=== PATIENT | female | born 1970 | race Caucasian/White ===

== ENCOUNTER 2017-02-13 01:48 | Emergency (ER) | payer MEDICAID ==
[~2017-02-13] VITALS: Ht 170.2 cm; Wt 80.7 kg
[~2017-02-13 01:48] MED LIST: ACYC-113 PO; ALPR1TAB2 PO; BUSP5TAB2 PO; CARI250T PO; DIAZ1KIT2; MORP30TA81 PO; MORP60TA34 PO; OMEP20TA62 PO; OXYC1TAB9 PO; SIMV40TA3 PO; ZOFRAN PO; baclofen; morphine; percocet; simvastatin
[2017-02-13] MEDS ORDERED: SODIUM CHLORIDE 0.9% 1,000 ML IV ONE (01:51)
[2017-02-13] MEDS ORDERED: MORPHINE SULFATE 4 MG/ML, 1ML IVPush PRN (02:00)
[2017-02-13] MEDS ORDERED: ONDANSETRON 2MG/ML, 2ML IVPush ONE (02:00)
[2017-02-13] MEDS ORDERED: SODIUM CHLORIDE FLUSH 10ML SYR IVF ONE (02:00)
[2017-02-13] MEDS ORDERED: MORPHINE SULFATE 4 MG/ML, 1ML ONE (02:29)
[2017-02-13] MEDS ORDERED: ONDANSETRON 2MG/ML, 2ML ONE (02:29)
[2017-02-13 03:20] LABS: BLOOD UREA NITROGEN 6 mg/dL (7-18)
[2017-02-13 03:24] LABS: ASPARTATE AMINO TRANSFERASE 17 U/L (15-37)
[2017-02-13 04:00] VITALS: BP 96/55
== END 2017-02-13 04:10 | disposition home or self-care (01) ==
LOC: ED 03:15
DX: R10.13 Epigastric pain (principal); M54.9 Dorsalgia, unspecified; G89.29 Other chronic pain; Z90.49 Acquired absence of other specified parts of digestive tract; Z98.84 Bariatric surgery status
CPT/HCPCS: 36415; 74020; 80053; 83690; 84703; 85025; 96361; 96374; 96375; 99285; J2405; J7030

== ENCOUNTER 2017-03-03 03:32 | Emergency (ER) | payer MEDICAID ==
[~2017-03-03] VITALS: Ht 170.2 cm; Wt 79.5 kg
[2017-03-03] MEDS ORDERED: CITA40TA12 PO (04:32)
[2017-03-03] MEDS ORDERED: HYDROmorphone 1 MG/ML, 1ML ONE ×2 (04:53→07:09)
[2017-03-03] MEDS ORDERED: ONDANSETRON 2MG/ML, 2ML ONE (04:53)
[2017-03-03] MEDS ORDERED: SODIUM CHLORIDE 0.9% 1,000ML IVBOLUS ONE (05:00)
[2017-03-03] MEDS ORDERED: ONDANSETRON 2MG/ML, 2ML IVPush ONE (05:00)
[2017-03-03] MEDS ORDERED: HYDROmorphone 1 MG/ML, 1ML IVPush PRN ×2 (05:00→08:00)
[2017-03-03] MEDS ORDERED: SODIUM CHLORIDE FLUSH 10ML SYR IVF ONE (05:00)
[2017-03-03 05:25] LABS: BLOOD UREA NITROGEN 7 mg/dL (7-18)
[2017-03-03 05:28] LABS: ASPARTATE AMINO TRANSFERASE 16 U/L (15-37)
[2017-03-03] MEDS ORDERED: METOCLOPRAMIDE 5 MG/ML, 2ML IVPush ONE (07:30)
[2017-03-03 08:39] VITALS: BP 108/66
== END 2017-03-03 08:44 | disposition home or self-care (01) ==
LOC: ED 05:14 → SUATTDRO 06:56 → ED 08:44
PROVIDERS: ATTEND Internal Medicine
DX: K29.00 Acute gastritis without bleeding (principal); N30.00 Acute cystitis without hematuria; M54.9 Dorsalgia, unspecified; G89.29 Other chronic pain; Z90.49 Acquired absence of other specified parts of digestive tract; Z88.2 Allergy status to sulfonamides; Z88.8 Allergy status to other drugs, medicaments and biological substances
CPT/HCPCS: 36415; 76700; 80053; 81001; 83605; 83690; 85025; 85610; 87086; 93005; 96361; 96374; 96375; 96376; 99285; J1170; J2405; J7030

== ENCOUNTER 2017-03-11 01:47 | Inpatient (IN) | payer MEDICAID ==
[~2017-03-11] VITALS: Ht 170.2 cm; Wt 94.6 kg
[~2017-03-11 01:47] MED LIST changes: +CITA40TA12 PO
[2017-03-11 02:56] LABS: ASPARTATE AMINO TRANSFERASE 14 U/L (15-37); BLOOD UREA NITROGEN 4 mg/dL (7-18)
[2017-03-11] MEDS ORDERED: SODIUM CHLORIDE 0.9% 1,000ML IVBOLUS ONE ×2 (03:00→05:00)
[2017-03-11] MEDS ORDERED: MORPHINE SULFATE 4 MG/ML, 1ML IVPush PRN (03:00)
[2017-03-11] MEDS ORDERED: ONDANSETRON 2MG/ML, 2ML IVPush ONE (03:00)
[2017-03-11] MEDS ORDERED: ONDANSETRON 2MG/ML, 2ML ONE (03:07)
[2017-03-11] MEDS ORDERED: HYDROmorphone 1 MG/ML, 1ML ONE ×2 (03:07→04:45)
[2017-03-11] MEDS ORDERED: HYDROmorphone 1 MG/ML, 1ML IV ONE (03:30)
[2017-03-11] MEDS ORDERED: SODIUM CHLORIDE 0.9% 1,000 ML IV ONE (04:36)
[2017-03-11] MEDS: HYDROmorphone 1 MG/ML, 1ML IVPush PRN ×2 (04:48→05:47)
[2017-03-11] MEDS ORDERED: HYDROmorphone 1 MG/ML, 1ML IVPush PRN (05:00)
[2017-03-11] MEDS ORDERED: ONDANSETRON 2MG/ML, 2ML IVPush PRN ×2 (05:00→05:30)
[2017-03-11] MEDS ORDERED: SODIUM CHLORIDE 0.9% 1,000 ML IV SCH (05:22)
[2017-03-11] MEDS ORDERED: METOCLOPRAMIDE 5 MG/ML, 2ML IVPush PRN (05:30)
[2017-03-11] MEDS ORDERED: PROMETHAZINE 25 MG/ML, 1ML IM PRN (05:30)
[2017-03-11 06:28] VITALS: BP 101/61
[2017-03-11] MEDS ORDERED: OMNIPAQUE 350 MG/ML, 100ML BOTTLE ONE (06:29)
[2017-03-11 07:33] VITALS: BP 82/49
[2017-03-11] MEDS: CITALOPRAM 20 MG TABLET PO SCH (08:23)
[2017-03-11] MEDS: ENOXAPARIN 40 MG/0.4 ML SQ SCH (08:23)
[2017-03-11 09:57] VITALS: BP 94/53
[2017-03-11] MEDS ORDERED: MAGNESIUM SULFATE PMX 2GM/50ML 50 ML IV ONE (10:30)
[2017-03-11 10:57] VITALS: BP 107/63
[2017-03-11 13:46] VITALS: BP 105/61
[2017-03-11] MEDS: OXYcodone/APAP 10/325MG TABLET PO PRN (17:03)
[2017-03-11 19:23] VITALS: BP 100/64
[2017-03-11] MEDS: morphine SULFATE 60 MG TABLET.ER PO SCH (21:41)
[2017-03-11] MEDS: ALPRazolam 1MG TABLET PO SCH (21:41)
[2017-03-11] MEDS: SIMVASTATIN 40 MG TABLET PO SCH (21:41)
[2017-03-12 01:32] VITALS: BP 107/68
[2017-03-12] MEDS: POTASSIUM CHLORIDE 40 MEQ in SODIUM CHLORIDE 0.9% 1,000 ML IV SCH ×2 (02:36→11:22)
[2017-03-12] MEDS: OXYcodone/APAP 10/325MG TABLET PO PRN ×2 (04:46→15:38)
[2017-03-12 05:38] LABS: ASPARTATE AMINO TRANSFERASE 331 U/L (15-37); BLOOD UREA NITROGEN 4 mg/dL (7-18)
[2017-03-12 07:26] VITALS: BP 95/61
[2017-03-12] MEDS: CITALOPRAM 20 MG TABLET PO SCH (08:43)
[2017-03-12] MEDS: ENOXAPARIN 40 MG/0.4 ML SQ SCH (08:44)
[2017-03-12] MEDS ORDERED: OMEPRAZOLE 20 MG CAPSULE.DR PO SCH (09:30)
[2017-03-12 12:22] VITALS: BP 98/61
[2017-03-12] MEDS ORDERED: POTASSIUM CHLORIDE 20 MEQ TAB.ER.PRT PO ONE (15:30)
[2017-03-12] MEDS: OMEPRAZOLE 20 MG CAPSULE.DR PO SCH (18:42)
[2017-03-12 19:17] VITALS: BP 110/69
[2017-03-12] MEDS: SIMVASTATIN 40 MG TABLET PO SCH (21:04)
[2017-03-12] MEDS: ALPRazolam 1MG TABLET PO SCH (21:04)
[2017-03-12] MEDS: morphine SULFATE 60 MG TABLET.ER PO SCH (21:05)
[2017-03-12] MEDS: DIPHENHYDRAMINE 50 MG/ML, 1ML IVPush ONE ×2 (23:30→23:46)
[2017-03-13] MEDS ORDERED: DIPHENHYDRAMINE 25 MG CAPSULE PO ONE
[2017-03-13 00:52] VITALS: BP 101/66
[2017-03-13] MEDS: OXYcodone/APAP 10/325MG TABLET PO PRN ×3 (02:17→23:29)
[2017-03-13 05:42] LABS: ASPARTATE AMINO TRANSFERASE 182 U/L (15-37); BLOOD UREA NITROGEN 3 mg/dL (7-18); TOTAL IRON BINDING CAPACITY 341 mcg/dL (250-450)
[2017-03-13 07:33] VITALS: BP 89/54
[2017-03-13] MEDS: OMEPRAZOLE 20 MG CAPSULE.DR PO SCH ×2 (07:56→17:09)
[2017-03-13] MEDS: CITALOPRAM 20 MG TABLET PO SCH (07:56)
[2017-03-13] MEDS: ENOXAPARIN 40 MG/0.4 ML SQ SCH (07:56)
[2017-03-13 14:09] VITALS: BP 107/71
[2017-03-13 19:07] VITALS: BP 122/72
[2017-03-13] MEDS: ALPRazolam 1MG TABLET PO SCH (21:03)
[2017-03-13] MEDS: SIMVASTATIN 40 MG TABLET PO SCH (21:03)
[2017-03-13] MEDS: morphine SULFATE 60 MG TABLET.ER PO SCH (21:04)
[2017-03-13] MEDS ORDERED: DIPHENHYDRAMINE 50 MG CAPSULE PO ONE (21:30)
[2017-03-14 02:00] VITALS: BP 111/55
[2017-03-14] MEDS: HYDROmorphone 2 MG/ML, 1ML IVPush PRN ×2 (05:31→06:08)
[2017-03-14 05:50] LABS: ASPARTATE AMINO TRANSFERASE 55 U/L (15-37); BLOOD UREA NITROGEN 5 mg/dL (7-18)
[2017-03-14] MEDS: OXYcodone/APAP 10/325MG TABLET PO PRN (06:04)
[2017-03-14 07:43] VITALS: BP 108/71
[2017-03-14] MEDS: CITALOPRAM 20 MG TABLET PO SCH (08:18)
[2017-03-14] MEDS: OMEPRAZOLE 20 MG CAPSULE.DR PO SCH (08:18)
[2017-03-14] MEDS: ENOXAPARIN 40 MG/0.4 ML SQ SCH (08:19)
== END 2017-03-14 11:05 | disposition home or self-care (01) | DRG 439 ==
LOC: ED 04:13 → EDIP 04:39 → 3NE 05:41 → DCLOUNGE 03-14 10:49
PROVIDERS: ADMIT Internal Medicine; ATTEND Internal Medicine
DX: K85.90 Acute pancreatitis without necrosis or infection, unspecified (principal); K86.3 Pseudocyst of pancreas; F11.20 Opioid dependence, uncomplicated; K86.1 Other chronic pancreatitis; D50.9 Iron deficiency anemia, unspecified; E78.5 Hyperlipidemia, unspecified; E87.6 Hypokalemia; F41.9 Anxiety disorder, unspecified; G89.29 Other chronic pain; Z87.891 Personal history of nicotine dependence; Z90.710 Acquired absence of both cervix and uterus; Z90.49 Acquired absence of other specified parts of digestive tract; Z88.2 Allergy status to sulfonamides; Z88.8 Allergy status to other drugs, medicaments and biological substances; Z87.440 Personal history of urinary (tract) infections; R74.8 Abnormal levels of other serum enzymes
CPT/HCPCS: 36415; 74177; 76705; 80053; 80061; 80307; 81001; 82150; 82728; 83540; 83550; 83690; 83735; 84100; 84443; 85025; 86704; 86706; 86708; 86803; 87086; 87340; 96374; 96375; J1170; J1650; J2405; J3480; Q9967; J1200; J2765; J3475; J7030; Q0163

== ENCOUNTER 2017-03-27 18:03 | Inpatient (IN) | payer MEDICAID ==
[~2017-03-27] VITALS: Ht 170.2 cm; Wt 84.9 kg
[2017-03-27] MEDS ORDERED: SODIUM CHLORIDE 0.9% 1,000ML IVBOLUS ONE (19:00)
[2017-03-27] MEDS ORDERED: SODIUM CHLORIDE FLUSH 10ML SYR IVF ONE (19:00)
[2017-03-27] MEDS ORDERED: ONDANSETRON 2MG/ML, 2ML IVPush ONE (19:00)
[2017-03-27] MEDS ORDERED: MORPHINE SULFATE 4 MG/ML, 1ML IVPush PRN (19:00)
[2017-03-27 19:17] LABS: ASPARTATE AMINO TRANSFERASE 22 U/L (15-37); BLOOD UREA NITROGEN 5 mg/dL (7-18)
[2017-03-27] MEDS ORDERED: ONDANSETRON 2MG/ML, 2ML ONE (20:19)
[2017-03-27] MEDS ORDERED: MORPHINE SULFATE 4 MG/ML, 1ML ONE (20:19)
[2017-03-27 20:50] LABS: PATH.CAST-FLAG NOT PRESENT; SPERM-FLAG NOT PRESENT; SRC-FLAG NOT PRESENT; XTAL-FLAG NOT PRESENT; YLC-FLAG NOT PRESENT
[2017-03-27] MEDS ORDERED: CEFTRIAXONE PMX 1GM/50ML 50 ML ONE (21:19)
[2017-03-27] MEDS ORDERED: CEFTRIAXONE PMX 1GM/50ML 50 ML IV ONE (21:30)
[2017-03-27] MEDS ORDERED: BISACODYL 10 MG SUPP PR PRN (22:00)
[2017-03-27] MEDS ORDERED: DOCUSATE 100 MG CAPSULE PO PRN (22:00)
[2017-03-27] MEDS ORDERED: ONDANSETRON 2MG/ML, 2ML IVPush PRN (22:00)
[2017-03-27] MEDS ORDERED: OXYcodone/APAP 10/325MG TABLET PO PRN (22:00)
[2017-03-27] MEDS ORDERED: TEMPLATE NON-FORMULARY MED. (Carisoprodol** (Soma**) 250 MG) HOMEMEDPO PRN (22:00)
[2017-03-27 22:35] VITALS: BP 103/66
[2017-03-27] MEDS ORDERED: HYDROmorphone 1 MG/ML, 1ML ONE (22:52)
[2017-03-27] MEDS: HYDROmorphone 2 MG/ML, 1ML IVPush PRN (22:55)
[2017-03-27] MEDS: D5%-0.45% NACL 1,000 ML IV SCH (22:58)
[2017-03-27] MEDS ORDERED: TRAZODONE 100MG TABLET PO ONE (23:30)
[2017-03-27] MEDS: ALPRazolam 1MG TABLET PO SCH (23:43)
[2017-03-28] MEDS ORDERED: HYDROmorphone 1 MG/ML, 1ML ONE ×4 (00:37→23:23)
[2017-03-28] MEDS: HYDROmorphone 2 MG/ML, 1ML IVPush PRN ×7 (00:40→23:24)
[2017-03-28 01:36] VITALS: BP 99/66
[2017-03-28 04:52] LABS: BLOOD UREA NITROGEN 5 mg/dL (7-18)
[2017-03-28 08:09] VITALS: BP 110/65
[2017-03-28] MEDS: OMEPRAZOLE 20 MG CAPSULE.DR PO SCH (09:16)
[2017-03-28] MEDS: CITALOPRAM 20 MG TABLET PO SCH (09:16)
[2017-03-28] MEDS: D5%-0.45% NACL 1,000 ML IV SCH ×3 (09:31→20:13)
[2017-03-28 13:49] VITALS: BP 91/55
[2017-03-28 19:42] VITALS: BP 92/60
[2017-03-28] MEDS: morphine SULFATE 60 MG TABLET.ER PO SCH (21:16)
[2017-03-28] MEDS: SIMVASTATIN 40 MG TABLET PO SCH (21:16)
[2017-03-28] MEDS: ALPRazolam 1MG TABLET PO SCH (22:10)
[2017-03-29 01:15] VITALS: BP 95/62
[2017-03-29] MEDS ORDERED: HYDROmorphone 1 MG/ML, 1ML ONE ×2 (02:26→05:16)
[2017-03-29] MEDS: HYDROmorphone 2 MG/ML, 1ML IVPush PRN ×6 (02:28→23:02)
[2017-03-29] MEDS: D5%-0.45% NACL 1,000 ML IV SCH ×3 (04:07→20:36)
[2017-03-29 04:56] LABS: BLOOD UREA NITROGEN 4 mg/dL (7-18)
[2017-03-29 04:59] LABS: ASPARTATE AMINO TRANSFERASE 18 U/L (15-37)
[2017-03-29 09:00] VITALS: BP 96/60
[2017-03-29] MEDS: OMEPRAZOLE 20 MG CAPSULE.DR PO SCH (09:32)
[2017-03-29] MEDS: CITALOPRAM 20 MG TABLET PO SCH (09:32)
[2017-03-29 13:48] VITALS: BP 94/61
[2017-03-29 20:35] VITALS: BP 106/69
[2017-03-29] MEDS: morphine SULFATE 60 MG TABLET.ER PO SCH (20:36)
[2017-03-29] MEDS: ALPRazolam 1MG TABLET PO SCH (20:36)
[2017-03-29] MEDS: SIMVASTATIN 40 MG TABLET PO SCH (20:37)
[2017-03-30] MEDS: HYDROmorphone 2 MG/ML, 1ML IVPush PRN ×3 (02:10→08:46)
[2017-03-30 02:16] VITALS: BP 103/66
[2017-03-30] MEDS: D5%-0.45% NACL 1,000 ML IV SCH (05:13)
[2017-03-30] MEDS: OMEPRAZOLE 20 MG CAPSULE.DR PO SCH (08:46)
[2017-03-30] MEDS: CITALOPRAM 20 MG TABLET PO SCH (08:46)
[2017-03-30 09:50] VITALS: BP 98/62
== END 2017-03-30 12:35 | disposition home or self-care (01) | DRG 439 ==
LOC: ED 21:00 → EDIP 21:12 → 3NW 22:25 → DCLOUNGE 03-30 12:22
PROVIDERS: ADMIT Family Medicine; ATTEND Family Medicine
DX: K85.90 Acute pancreatitis without necrosis or infection, unspecified (principal); F11.20 Opioid dependence, uncomplicated; K86.1 Other chronic pancreatitis; D50.9 Iron deficiency anemia, unspecified; E78.5 Hyperlipidemia, unspecified; F32.9 Major depressive disorder, single episode, unspecified; F41.9 Anxiety disorder, unspecified; G89.29 Other chronic pain; K21.9 Gastro-esophageal reflux disease without esophagitis; K59.00 Constipation, unspecified; N30.90 Cystitis, unspecified without hematuria; M25.551 Pain in right hip; M54.5 Low back pain; R63.0 Anorexia; Z88.2 Allergy status to sulfonamides; Z87.891 Personal history of nicotine dependence; Z88.8 Allergy status to other drugs, medicaments and biological substances; Z83.3 Family history of diabetes mellitus; Z80.1 Family history of malignant neoplasm of trachea, bronchus and lung; Z82.49 Family history of ischemic heart disease and other diseases of the circulatory system
CPT/HCPCS: 36415; 74022; 80048; 80053; 81001; 82274; 83690; 83735; 84100; 85025; 87086; 93005; 96374; 96375; J0696; J1170; J2405; J7030

== ENCOUNTER 2017-06-05 15:09 | Inpatient (IN) | payer MEDICAID ==
[~2017-06-05] VITALS: Ht 170.2 cm; Wt 87.3 kg
[2017-06-05] MEDS ORDERED: SODIUM CHLORIDE 0.9% 1,000 ML IV ONE ×2 (15:51→19:22)
[2017-06-05] MEDS ORDERED: ONDANSETRON 2MG/ML, 2ML IVPush ONE (16:00)
[2017-06-05] MEDS ORDERED: SODIUM CHLORIDE 0.9% 1,000ML IVBOLUS ONE (16:00)
[2017-06-05] MEDS ORDERED: MORPHINE SULFATE 4 MG/ML, 1ML IVPush PRN (16:00)
[2017-06-05 16:16] LABS: HEMATOCRIT 32.6 % (34.6-47.8); HEMOGLOBIN 10.2 g/dL (11.7-16.4)
[2017-06-05 16:29] LABS: BLOOD UREA NITROGEN 5 mg/dL (7-18)
[2017-06-05 16:34] LABS: ASPARTATE AMINO TRANSFERASE 16 U/L (15-37)
[2017-06-05] MEDS ORDERED: HYDROmorphone 1 MG/ML, 1ML ONE ×3 (17:10→21:31)
[2017-06-05] MEDS ORDERED: ONDANSETRON 2MG/ML, 2ML ONE (17:10)
[2017-06-05] MEDS: HYDROmorphone 1 MG/ML, 1ML IVPush PRN ×2 (17:22→18:38)
[2017-06-05] MEDS ORDERED: OMNIPAQUE 350 MG/ML, 100ML BOTTLE ONE (18:25)
[2017-06-05] MEDS ORDERED: SODIUM CHLORIDE FLUSH 10ML SYR IVF PRN (19:30)
[2017-06-05] MEDS ORDERED: ONDANSETRON 2MG/ML, 2ML IVPush PRN (20:30)
[2017-06-05] MEDS ORDERED: ONDANSETRON ODT 4 MG PO PRN (20:30)
[2017-06-05] MEDS ORDERED: HYDR4TAB48 PO (20:41)
[2017-06-05] MEDS ORDERED: TRAZ100T15 PO (20:42)
[2017-06-05] MEDS ORDERED: ENOXAPARIN 40 MG/0.4 ML ONE (20:49)
[2017-06-05] MEDS: ENOXAPARIN 40 MG/0.4 ML SQ SCH (20:53)
[2017-06-05] MEDS ORDERED: ALPRazolam 1MG TABLET PO SCH (21:00)
[2017-06-05] MEDS: morphine SULFATE 60 MG TABLET.ER PO SCH (21:00)
[2017-06-05] MEDS: D5%-0.45NACL+KCL 20MEQ 1,000 ML IV SCH (21:40)
[2017-06-05] MEDS: SIMVASTATIN 40 MG TABLET PO SCH (21:42)
[2017-06-05] MEDS: HYDROmorphone 2 MG/ML, 1ML IVPush PRN (21:45)
[2017-06-05] MEDS: TRAZODONE 100MG TABLET PO SCH (22:52)
[2017-06-05 23:30] VITALS: BP 107/63
[2017-06-06] MEDS: HYDROmorphone 2 MG/ML, 1ML IVPush PRN ×6 (01:16→23:25)
[2017-06-06 01:19] VITALS: BP 98/61
[2017-06-06] MEDS: D5%-0.45NACL+KCL 20MEQ 1,000 ML IV SCH ×3 (05:30→22:26)
[2017-06-06 05:53] LABS: HEMATOCRIT 26.8 % (34.6-47.8); HEMOGLOBIN 8.3 g/dL (11.7-16.4); WHITE BLOOD COUNT 6.9 x10^3/uL (3.4-10)
[2017-06-06 06:05] LABS: BLOOD UREA NITROGEN 4 mg/dL (7-18)
[2017-06-06] MEDS ORDERED: MAGNESIUM SULFATE PMX 2GM/50ML 50 ML IV ONE (06:30)
[2017-06-06 08:05] VITALS: BP 103/86
[2017-06-06] MEDS: CITALOPRAM 20 MG TABLET PO SCH (09:42)
[2017-06-06] MEDS: OMEPRAZOLE 20 MG CAPSULE.DR PO SCH (09:43)
[2017-06-06 14:00] VITALS: BP 95/47
[2017-06-06 19:24] VITALS: BP 83/49
[2017-06-06 20:53] VITALS: BP 93/63
[2017-06-06] MEDS: ENOXAPARIN 40 MG/0.4 ML SQ SCH (20:55)
[2017-06-06] MEDS: morphine SULFATE 60 MG TABLET.ER PO SCH (20:56)
[2017-06-06] MEDS: SIMVASTATIN 40 MG TABLET PO SCH (20:58)
[2017-06-06] MEDS: TRAZODONE 100MG TABLET PO SCH (21:00)
[2017-06-07 00:45] VITALS: BP 104/67
[2017-06-07] MEDS: D5%-0.45NACL+KCL 20MEQ 1,000 ML IV SCH (05:50)
[2017-06-07] MEDS: HYDROmorphone 2 MG/ML, 1ML IVPush PRN (06:43)
[2017-06-07 07:51] LABS: HEMATOCRIT 25.8 % (34.6-47.8); HEMOGLOBIN 8.1 g/dL (11.7-16.4); WHITE BLOOD COUNT 6.8 x10^3/uL (3.4-10)
[2017-06-07 08:03] LABS: ASPARTATE AMINO TRANSFERASE 28 U/L (15-37); BLOOD UREA NITROGEN 3 mg/dL (7-18)
[2017-06-07] MEDS ORDERED: MAGNESIUM SULFATE PMX 2GM/50ML 50 ML IV ONE (09:00)
[2017-06-07 09:16] VITALS: BP 95/58
[2017-06-07] MEDS: OMEPRAZOLE 20 MG CAPSULE.DR PO SCH (09:21)
[2017-06-07] MEDS: CITALOPRAM 20 MG TABLET PO SCH (09:21)
[2017-06-07 14:15] VITALS: BP 97/63
[2017-06-07] MEDS: OXYcodone/APAP 10/325MG TABLET PO PRN ×2 (14:29→22:34)
[2017-06-07 20:01] VITALS: BP 95/60
[2017-06-07] MEDS: morphine SULFATE 60 MG TABLET.ER PO SCH (20:36)
[2017-06-07] MEDS: ENOXAPARIN 40 MG/0.4 ML SQ SCH (20:37)
[2017-06-07] MEDS: TRAZODONE 100MG TABLET PO SCH (20:37)
[2017-06-07] MEDS: SIMVASTATIN 40 MG TABLET PO SCH (20:37)
[2017-06-07 21:18] LABS: OCCBLD OBC PASS
[2017-06-08 02:28] VITALS: BP 100/63
[2017-06-08] MEDS: OXYcodone/APAP 10/325MG TABLET PO PRN (04:48)
[2017-06-08 06:22] LABS: HEMATOCRIT 26.9 % (34.6-47.8); HEMOGLOBIN 8.5 g/dL (11.7-16.4); WHITE BLOOD COUNT 6.9 x10^3/uL (3.4-10)
[2017-06-08 06:30] VITALS: BP 92/58
[2017-06-08 06:49] LABS: ASPARTATE AMINO TRANSFERASE 9 U/L (15-37); BLOOD UREA NITROGEN 3 mg/dL (7-18)
[2017-06-08] MEDS: CITALOPRAM 20 MG TABLET PO SCH (09:29)
[2017-06-08] MEDS: OMEPRAZOLE 20 MG CAPSULE.DR PO SCH (09:29)
[2017-06-08 12:00] VITALS: BP 100/64
== END 2017-06-08 16:23 | disposition home or self-care (01) | DRG 439 ==
LOC: ED 19:44 → EDIP 20:00 → 4WST 22:05 → DCLOUNGE 06-08 15:36
PROVIDERS: ADMIT Family Medicine; ATTEND Family Medicine
DX: K85.90 Acute pancreatitis without necrosis or infection, unspecified (principal); F11.20 Opioid dependence, uncomplicated; K76.0 Fatty (change of) liver, not elsewhere classified; K86.3 Pseudocyst of pancreas; E83.42 Hypomagnesemia; E78.5 Hyperlipidemia, unspecified; D50.9 Iron deficiency anemia, unspecified; K86.1 Other chronic pancreatitis; K21.9 Gastro-esophageal reflux disease without esophagitis; F32.9 Major depressive disorder, single episode, unspecified; F41.9 Anxiety disorder, unspecified; G89.29 Other chronic pain; Z82.49 Family history of ischemic heart disease and other diseases of the circulatory system; Z83.3 Family history of diabetes mellitus; Z80.1 Family history of malignant neoplasm of trachea, bronchus and lung; Z79.899 Other long term (current) drug therapy; Z87.891 Personal history of nicotine dependence; Z90.49 Acquired absence of other specified parts of digestive tract; Z98.84 Bariatric surgery status; Z90.710 Acquired absence of both cervix and uterus; Z90.89 Acquired absence of other organs; Z88.2 Allergy status to sulfonamides; Z88.8 Allergy status to other drugs, medicaments and biological substances
CPT/HCPCS: 36415; 74020; 74177; 80048; 80053; 81003; 82272; 82607; 82746; 83690; 83735; 84100; 84439; 84443; 85025; 96361; 96374; 96375; 96376; J1170; J1650; J2405; Q9967; J3475; J3480; J7030

== ENCOUNTER 2017-11-24 13:24 | Emergency (ER) | payer MEDICAID ==
[~2017-11-24] VITALS: Ht 170.2 cm; Wt 77.7 kg
[~2017-11-24 13:24] MED LIST changes: +HYDR4TAB48 PO; +TRAZ100T15 PO
[2017-11-24] MEDS ORDERED: SODIUM CHLORIDE 0.9% 1,000ML IVBOLUS ONE (15:30)
[2017-11-24] MEDS ORDERED: MORPHINE SULFATE 4 MG/ML, 1ML IVPush PRN (15:30)
[2017-11-24] MEDS ORDERED: DIPHENHYDRAMINE 50 MG/ML, 1ML IVPush ONE (15:30)
[2017-11-24] MEDS ORDERED: METOCLOPRAMIDE 5 MG/ML, 2ML IVPush ONE (15:30)
[2017-11-24] MEDS ORDERED: SODIUM CHLORIDE FLUSH 10ML SYR IVF ONE (15:30)
[2017-11-24] MEDS ORDERED: METOCLOPRAMIDE 5 MG/ML, 2ML ONE (15:41)
[2017-11-24] MEDS ORDERED: MORPHINE SULFATE 4 MG/ML, 1ML ONE (15:41)
[2017-11-24] MEDS ORDERED: DIPHENHYDRAMINE 50 MG/ML, 1ML ONE (15:41)
[2017-11-24 15:54] LABS: BASOPHILS # (AUTO) 0.02 x10^3/uL (0-0.1); BASOPHILS % (AUTO) 0 % (0-1); EOSINOPHILS # (AUTO) 0.12 x10^3/uL (0-0.4); EOSINOPHILS % (AUTO) 2 % (1-7); LYMPHOCYTES # (AUTO) 1.37 x10^3/uL (1-3.4); LYMPHOCYTES % (AUTO) 22 % (22-44); MD NO; MEAN CORPUSCULAR HEMOGLOBIN 25.7 pg (27.0-34.8); MEAN CORPUSCULAR HGB CONC 32.7 g/dL (32.4-35.8); MEAN CORPUSCULAR VOLUME 78.5 fL (80-100); MEAN PLATELET VOLUME 9.1 fL (7.4-10.4); MONOCYTES # (AUTO) 0.18 x10^3/uL (0.2-0.8); MONOCYTES % (AUTO) 3 % (2-9); NEUTROPHILS # (AUTO) 4.63 x10^3/uL (1.8-6.8); NEUTROPHILS % (AUTO) 73 % (42-75); PLATELET COUNT 271 x10^3/uL (130-400); RED BLOOD COUNT 5.06 x10^6/uL (3.82-5.3); RED CELL DISTRIBUTION WIDTH 26.4 % (9.6-15.2)
[2017-11-24 15:55] LABS: HEMOGRAM NOTE RECHECKED
[2017-11-24 16:00] LABS: ALANINE AMINOTRANSFERASE 19 U/L (12-78); ALBUMIN 2.5 g/dL (3.4-5.0); ANION GAP 5 mmol/L (5-15); CALCIUM 8.4 mg/dL (8.5-10.1); CHLORIDE 105 mmol/L (98-107); CREATININE 0.64 mg/dL (0.55-1.02)
[2017-11-24 16:02] LABS: ALKALINE PHOSPHATASE 113 U/L (45-117); BILIRUBIN,TOTAL 0.4 mg/dL (0.2-1.0); TOTAL PROTEIN 6.1 g/dL (6.4-8.2)
[2017-11-24 17:59] VITALS: BP 132/74
== END 2017-11-24 18:01 | disposition home or self-care (01) ==
LOC: ED 15:59
DX: R10.13 Epigastric pain (principal); Z90.49 Acquired absence of other specified parts of digestive tract
CPT/HCPCS: 36415; 80053; 82150; 83690; 85025; 93005; 96361; 96374; 96375; 99285; J1200; J2765; J7030

== ENCOUNTER 2017-11-26 19:17 | Inpatient (IN) | payer MEDICAID ==
[~2017-11-26] VITALS: Ht 170.2 cm; Wt 71.1 kg
[2017-11-26] MEDS ORDERED: SODIUM CHLORIDE 0.9% 1,000 ML IV ONE (20:22)
[2017-11-26] MEDS ORDERED: ONDANSETRON 2MG/ML, 2ML ONE (20:27)
[2017-11-26] MEDS ORDERED: HYDROmorphone 1 MG/ML, 1ML ONE (20:27)
[2017-11-26] MEDS ORDERED: ONDANSETRON 2MG/ML, 2ML IVPush ONE (20:30)
[2017-11-26] MEDS ORDERED: SODIUM CHLORIDE FLUSH 10ML SYR IVF ONE (20:30)
[2017-11-26] MEDS ORDERED: SODIUM CHLORIDE 0.9% 1,000ML IVBOLUS ONE (20:30)
[2017-11-26 20:53] LABS: CULTURE INDICATED? YES; MICROSCOPIC INDICATED
[2017-11-26] MEDS: HYDROmorphone 1 MG/ML, 1ML IVPush PRN ×3 (20:59→23:36)
[2017-11-26 21:09] LABS: MEAN CORPUSCULAR HEMOGLOBIN 25.5 pg (27.0-34.8); MEAN CORPUSCULAR HGB CONC 32.5 g/dL (32.4-35.8); MEAN CORPUSCULAR VOLUME 78.5 fL (80-100); MEAN PLATELET VOLUME 9.6 fL (7.4-10.4); PLATELET COUNT 309 x10^3/uL (130-400); RED BLOOD COUNT 5.42 x10^6/uL (3.82-5.3); RED CELL DISTRIBUTION WIDTH 26.5 % (9.6-15.2)
[2017-11-26 21:20] LABS: ALBUMIN 2.8 g/dL (3.4-5.0); ANION GAP 8 mmol/L (5-15); CALCIUM 8.5 mg/dL (8.5-10.1); CHLORIDE 104 mmol/L (98-107)
[2017-11-26 21:25] LABS: ALANINE AMINOTRANSFERASE 17 U/L (12-78); ALKALINE PHOSPHATASE 125 U/L (45-117); BILIRUBIN,TOTAL 0.6 mg/dL (0.2-1.0); CREATININE 0.63 mg/dL (0.55-1.02); TOTAL PROTEIN 6.8 g/dL (6.4-8.2)
[2017-11-26 21:28] LABS: BASOPHILS # (AUTO) 0.05 x10^3/uL (0-0.1); BASOPHILS % (AUTO) 1 % (0-1); EOSINOPHILS # (AUTO) 0.08 x10^3/uL (0-0.4); EOSINOPHILS % (AUTO) 1 % (1-7); LYMPHOCYTES # (AUTO) 1.65 x10^3/uL (1-3.4); LYMPHOCYTES % (AUTO) 18 % (22-44); MD MORPH REVIEW ONLY; MONOCYTES # (AUTO) 0.57 x10^3/uL (0.2-0.8); MONOCYTES % (AUTO) 6 % (2-9); NEUTROPHILS # (AUTO) 6.96 x10^3/uL (1.8-6.8); NEUTROPHILS % (AUTO) 75 % (42-75)
[2017-11-26 21:29] LABS: ANISOCYTOSIS 2+
[2017-11-26 21:30] LABS: OVALOCYTES 1+; POLYCHROMASIA 1+
[2017-11-26 21:31] LABS: MICROCYTOSIS 1+; TEAR DROPS 1+
[2017-11-26 21:32] LABS: <PLATELET ESTIMATE> ADEQUATE; LARGE PLATELETS 1+
[2017-11-26] MEDS ORDERED: CEFTRIAXONE PMX 1GM/50ML 50 ML IV ONE (22:30)
[2017-11-26] MEDS ORDERED: FENTANYL PF 100 MCG/2ML IVPush ONE (22:30)
[2017-11-26] MEDS ORDERED: FENTANYL PF 100 MCG/2ML ONE (22:33)
[2017-11-26] MEDS ORDERED: CEFTRIAXONE PMX 1GM/50ML 50 ML ONE (22:55)
[2017-11-26 23:30] VITALS: BP 108/70
[2017-11-26] MEDS ORDERED: ONDANSETRON 2MG/ML, 2ML IVPush PRN (23:30)
[2017-11-26] MEDS: morphine SULFATE 60 MG TABLET.ER PO SCH (23:55)
[2017-11-26] MEDS: ENOXAPARIN 40 MG/0.4 ML SQ SCH (23:58)
[2017-11-26] MEDS: D5%-0.45NACL+KCL 20MEQ 1,000 ML IV SCH (23:59)
[2017-11-27] MEDS: IBUPROFEN 200 MG TABLET PO PRN (00:59)
[2017-11-27 02:00] VITALS: BP 97/63
[2017-11-27] MEDS: morphine SULFATE 10 MG/ML, 1ML IVPush PRN ×5 (04:08→17:55)
[2017-11-27 05:47] LABS: ALANINE AMINOTRANSFERASE 11 U/L (12-78); ALBUMIN 2.1 g/dL (3.4-5.0); ANION GAP 6 mmol/L (5-15); CALCIUM 7.4 mg/dL (8.5-10.1); CHLORIDE 108 mmol/L (98-107); CREATININE 0.59 mg/dL (0.55-1.02)
[2017-11-27 05:50] LABS: ALKALINE PHOSPHATASE 93 U/L (45-117); BILIRUBIN,TOTAL 0.4 mg/dL (0.2-1.0); TOTAL PROTEIN 5.1 g/dL (6.4-8.2)
[2017-11-27 06:08] LABS: MEAN CORPUSCULAR HEMOGLOBIN 26.2 pg (27.0-34.8); MEAN CORPUSCULAR HGB CONC 32.9 g/dL (32.4-35.8); MEAN CORPUSCULAR VOLUME 79.8 fL (80-100); MEAN PLATELET VOLUME 9.6 fL (7.4-10.4); PLATELET COUNT 237 x10^3/uL (130-400); RED BLOOD COUNT 4.41 x10^6/uL (3.82-5.3); RED CELL DISTRIBUTION WIDTH 25.9 % (9.6-15.2)
[2017-11-27 07:40] VITALS: BP 105/69
[2017-11-27] MEDS: PANTOPRAZOLE 40 MG IV IVPush SCH (07:43)
[2017-11-27] MEDS: CITALOPRAM 20 MG TABLET PO SCH (07:44)
[2017-11-27 07:45] LABS: BASOPHILS # (AUTO) 0.03 x10^3/uL (0-0.1); BASOPHILS % (AUTO) 0 % (0-1); EOSINOPHILS # (AUTO) 0.12 x10^3/uL (0-0.4); EOSINOPHILS % (AUTO) 2 % (1-7); LYMPHOCYTES # (AUTO) 1.75 x10^3/uL (1-3.4); LYMPHOCYTES % (AUTO) 24 % (22-44); MD SCAN; MONOCYTES # (AUTO) 0.51 x10^3/uL (0.2-0.8); MONOCYTES % (AUTO) 7 % (2-9); NEUTROPHILS # (AUTO) 4.83 x10^3/uL (1.8-6.8); NEUTROPHILS % (AUTO) 67 % (42-75)
[2017-11-27] MEDS: D5%-0.45NACL+KCL 20MEQ 1,000 ML IV SCH ×2 (09:53→19:30)
[2017-11-27] MEDS ORDERED: LIDOCAINE 1%, 20ML ONE (10:28)
[2017-11-27 14:49] VITALS: BP 90/56
[2017-11-27 20:00] VITALS: BP 102/58
[2017-11-27] MEDS: morphine SULFATE 60 MG TABLET.ER PO SCH (20:52)
[2017-11-27] MEDS: SIMVASTATIN 40 MG TABLET PO SCH (20:52)
[2017-11-27] MEDS ORDERED: morphine SULFATE 60 MG TABLET.ER PO SCH (21:00)
[2017-11-27] MEDS: OXYcodone/APAP 10/325MG TABLET PO PRN (21:20)
[2017-11-27] MEDS: TRAZODONE 50MG TABLET PO PRN (21:20)
[2017-11-27] MEDS: POTASSIUM CHLORIDE 20 MEQ in SODIUM CHLORIDE 0.45% 1,000 ML IV SCH (22:09)
[2017-11-27] MEDS: ENOXAPARIN 40 MG/0.4 ML SQ SCH (23:58)
[2017-11-28] MEDS: morphine SULFATE 10 MG/ML, 1ML IVPush PRN ×3 (00:57→16:52)
[2017-11-28 01:28] VITALS: BP 101/61
[2017-11-28] MEDS: OXYcodone/APAP 10/325MG TABLET PO PRN ×3 (05:48→22:26)
[2017-11-28 05:55] LABS: CHLORIDE 109 mmol/L (98-107)
[2017-11-28 06:00] LABS: MEAN CORPUSCULAR HEMOGLOBIN 26.2 pg (27.0-34.8); MEAN CORPUSCULAR HGB CONC 32.7 g/dL (32.4-35.8); MEAN CORPUSCULAR VOLUME 80.2 fL (80-100); MEAN PLATELET VOLUME 9.4 fL (7.4-10.4); PLATELET COUNT 205 x10^3/uL (130-400); RED BLOOD COUNT 4.28 x10^6/uL (3.82-5.3); RED CELL DISTRIBUTION WIDTH 25.2 % (9.6-15.2)
[2017-11-28 06:10] LABS: ALANINE AMINOTRANSFERASE 11 U/L (12-78); ALBUMIN 1.8 g/dL (3.4-5.0); ALKALINE PHOSPHATASE 86 U/L (45-117); ANION GAP 7 mmol/L (5-15); BILIRUBIN,TOTAL 0.6 mg/dL (0.2-1.0); CALCIUM 7.4 mg/dL (8.5-10.1); CREATININE 0.52 mg/dL (0.55-1.02); TOTAL PROTEIN 4.7 g/dL (6.4-8.2)
[2017-11-28 07:05] LABS: BASOPHILS # (AUTO) 0.02 x10^3/uL (0-0.1); BASOPHILS % (AUTO) 0 % (0-1); EOSINOPHILS # (AUTO) 0.23 x10^3/uL (0-0.4); EOSINOPHILS % (AUTO) 3 % (1-7); LYMPHOCYTES # (AUTO) 1.18 x10^3/uL (1-3.4); LYMPHOCYTES % (AUTO) 17 % (22-44); MD SCAN; MONOCYTES % (AUTO) 7 % (2-9); NEUTROPHILS # (AUTO) 5.14 x10^3/uL (1.8-6.8); NEUTROPHILS % (AUTO) 73 % (42-75)
[2017-11-28 07:38] VITALS: BP 91/56
[2017-11-28] MEDS: PANTOPRAZOLE 40 MG IV IVPush SCH (08:17)
[2017-11-28] MEDS: CITALOPRAM 20 MG TABLET PO SCH (08:17)
[2017-11-28] MEDS: POTASSIUM CHLORIDE 20 MEQ in SODIUM CHLORIDE 0.45% 1,000 ML IV SCH (10:50)
[2017-11-28 14:21] LABS: MICROSCOPIC NOT IND
[2017-11-28 14:24] LABS: CULTURE INDICATED? NO
[2017-11-28 16:47] VITALS: BP 109/69
[2017-11-28 20:00] VITALS: BP 107/67
[2017-11-28] MEDS: TRAZODONE 50MG TABLET PO PRN ×2 (20:29→22:26)
[2017-11-28] MEDS: morphine SULFATE 60 MG TABLET.ER PO SCH (20:29)
[2017-11-28] MEDS: SIMVASTATIN 40 MG TABLET PO SCH (20:29)
[2017-11-29] MEDS: POTASSIUM CHLORIDE 20 MEQ in SODIUM CHLORIDE 0.45% 1,000 ML IV SCH (00:34)
[2017-11-29 02:00] VITALS: BP 111/65
[2017-11-29] MEDS: morphine SULFATE 10 MG/ML, 1ML IVPush PRN ×5 (02:53→21:44)
[2017-11-29 04:47] LABS: CHLORIDE 112 mmol/L (98-107)
[2017-11-29 04:54] LABS: ALANINE AMINOTRANSFERASE 11 U/L (12-78); ALBUMIN 1.8 g/dL (3.4-5.0); ALKALINE PHOSPHATASE 85 U/L (45-117); ANION GAP 3 mmol/L (5-15); BILIRUBIN,TOTAL 0.4 mg/dL (0.2-1.0); CREATININE 0.45 mg/dL (0.55-1.02); TOTAL PROTEIN 4.8 g/dL (6.4-8.2)
[2017-11-29 07:02] VITALS: BP 100/65
[2017-11-29] MEDS: CITALOPRAM 20 MG TABLET PO SCH (07:59)
[2017-11-29] MEDS: ENOXAPARIN 40 MG/0.4 ML SQ SCH (07:59)
[2017-11-29] MEDS: PANTOPRAZOLE 40 MG IV IVPush SCH (07:59)
[2017-11-29] MEDS ORDERED: OMNIPAQUE 350 MG/ML, 100ML BOTTLE ONE (12:16)
[2017-11-29 13:45] VITALS: BP 101/65
[2017-11-29] MEDS ORDERED: FENTANYL PF 100 MCG/2ML ONE (15:40)
[2017-11-29] MEDS ORDERED: NALOXONE 1 MG/ML, 2ML ONE (15:40)
[2017-11-29] MEDS ORDERED: LIDOCAINE 1%, 20ML ONE (15:40)
[2017-11-29 16:52] VITALS: BP 103/66
[2017-11-29] MEDS: OXYcodone/APAP 10/325MG TABLET PO PRN ×2 (18:03→23:49)
[2017-11-29] MEDS: KETOROLAC 30 MG/1 ML IVPush PRN (19:14)
[2017-11-29 19:53] VITALS: BP 107/66
[2017-11-29] MEDS: SIMVASTATIN 40 MG TABLET PO SCH (20:27)
[2017-11-29] MEDS: morphine SULFATE 60 MG TABLET.ER PO SCH (20:28)
[2017-11-30 00:56] VITALS: BP 101/66
[2017-11-30] MEDS: KETOROLAC 30 MG/1 ML IVPush PRN ×3 (02:06→18:03)
[2017-11-30] MEDS: morphine SULFATE 10 MG/ML, 1ML IVPush PRN (05:19)
[2017-11-30 07:58] VITALS: BP 99/61
[2017-11-30] MEDS: CITALOPRAM 20 MG TABLET PO SCH (08:41)
[2017-11-30] MEDS: PANTOPRAZOLE 40 MG IV IVPush SCH (08:41)
[2017-11-30] MEDS: ENOXAPARIN 40 MG/0.4 ML SQ SCH (08:41)
[2017-11-30 10:10] VITALS: BP 103/63
[2017-11-30] MEDS ORDERED: OMNIPAQUE 350 MG/ML, 75ML BOTTLE ONE (11:45)
[2017-11-30 12:50] VITALS: BP 100/63
[2017-11-30 19:11] VITALS: BP 102/64
[2017-11-30] MEDS: morphine SULFATE 60 MG TABLET.ER PO SCH (21:00)
[2017-11-30] MEDS: SIMVASTATIN 40 MG TABLET PO SCH (22:00)
[2017-12-01 00:16] VITALS: BP 110/72
[2017-12-01] MEDS: KETOROLAC 30 MG/1 ML IVPush PRN ×3 (00:30→18:47)
[2017-12-01 06:01] LABS: ALBUMIN 1.8 g/dL (3.4-5.0); CALCIUM 7.4 mg/dL (8.5-10.1); CHLORIDE 105 mmol/L (98-107)
[2017-12-01 06:06] LABS: ALANINE AMINOTRANSFERASE 17 U/L (12-78); ALKALINE PHOSPHATASE 100 U/L (45-117); ANION GAP 6 mmol/L (5-15); BILIRUBIN,TOTAL 0.5 mg/dL (0.2-1.0); CREATININE 0.48 mg/dL (0.55-1.02)
[2017-12-01 07:14] VITALS: BP 92/55
[2017-12-01] MEDS: ENOXAPARIN 40 MG/0.4 ML SQ SCH (08:59)
[2017-12-01] MEDS: PANTOPROZOLE 40MG TABLET PO SCH (09:00)
[2017-12-01] MEDS: CITALOPRAM 20 MG TABLET PO SCH (09:00)
[2017-12-01 13:38] VITALS: BP 134/83
[2017-12-01 14:03] VITALS: BP 100/67
[2017-12-01] MEDS: OXYcodone/APAP 10/325MG TABLET PO PRN ×2 (14:04→23:07)
[2017-12-01 20:00] VITALS: BP 110/70
[2017-12-01] MEDS: TRAZODONE 50MG TABLET PO PRN (20:37)
[2017-12-01] MEDS: SIMVASTATIN 40 MG TABLET PO SCH (20:37)
[2017-12-01] MEDS: morphine SULFATE 60 MG TABLET.ER PO SCH (20:38)
[2017-12-02 02:00] VITALS: BP 106/65
[2017-12-02] MEDS: KETOROLAC 30 MG/1 ML IVPush PRN ×3 (04:03→22:37)
[2017-12-02 06:02] LABS: CHLORIDE 107 mmol/L (98-107)
[2017-12-02 06:10] LABS: ALANINE AMINOTRANSFERASE 14 U/L (12-78); ALBUMIN 1.7 g/dL (3.4-5.0); ALKALINE PHOSPHATASE 88 U/L (45-117); ANION GAP 5 mmol/L (5-15); BILIRUBIN,TOTAL 0.5 mg/dL (0.2-1.0); CALCIUM 7.8 mg/dL (8.5-10.1); CREATININE 0.52 mg/dL (0.55-1.02)
[2017-12-02] MEDS: CITALOPRAM 20 MG TABLET PO SCH (07:46)
[2017-12-02] MEDS: ENOXAPARIN 40 MG/0.4 ML SQ SCH (07:46)
[2017-12-02] MEDS: PANTOPROZOLE 40MG TABLET PO SCH (07:46)
[2017-12-02 09:12] VITALS: BP 119/75
[2017-12-02] MEDS: OXYcodone/APAP 10/325MG TABLET PO PRN ×2 (09:32→13:54)
[2017-12-02 12:51] VITALS: BP 111/69
[2017-12-02] MEDS: IBUPROFEN 200 MG TABLET PO PRN (18:39)
[2017-12-02 19:08] VITALS: BP 96/60
[2017-12-02] MEDS: SIMVASTATIN 40 MG TABLET PO SCH (20:27)
[2017-12-02] MEDS: TRAZODONE 50MG TABLET PO PRN (20:27)
[2017-12-02] MEDS: morphine SULFATE 60 MG TABLET.ER PO SCH (20:28)
[2017-12-03 01:35] VITALS: BP 97/62
[2017-12-03] MEDS: OXYcodone/APAP 10/325MG TABLET PO PRN ×2 (01:38→18:35)
[2017-12-03 05:54] LABS: ALANINE AMINOTRANSFERASE 15 U/L (12-78); ALBUMIN 1.7 g/dL (3.4-5.0); ANION GAP 5 mmol/L (5-15); CALCIUM 7.6 mg/dL (8.5-10.1); CHLORIDE 108 mmol/L (98-107); CREATININE 0.55 mg/dL (0.55-1.02)
[2017-12-03 05:56] LABS: ALKALINE PHOSPHATASE 90 U/L (45-117); BILIRUBIN,TOTAL 0.2 mg/dL (0.2-1.0); TOTAL PROTEIN 4.9 g/dL (6.4-8.2)
[2017-12-03] MEDS: KETOROLAC 30 MG/1 ML IVPush PRN ×3 (06:06→23:16)
[2017-12-03 06:55] VITALS: BP 98/59
[2017-12-03 08:00] LABS: INTERNATIONAL NORMALIZED RATIO 1.04 (0.93-1.1); PROTHROMBIN TIME 10.8 Seconds (9.6-11.5)
[2017-12-03 08:18] LABS: MEAN CORPUSCULAR HEMOGLOBIN 26.1 pg (27.0-34.8); MEAN CORPUSCULAR HGB CONC 32.6 g/dL (32.4-35.8); MEAN CORPUSCULAR VOLUME 80.1 fL (80-100); MEAN PLATELET VOLUME 9.5 fL (7.4-10.4); PLATELET COUNT 249 x10^3/uL (130-400); RED BLOOD COUNT 4.09 x10^6/uL (3.82-5.3); RED CELL DISTRIBUTION WIDTH 22.5 % (9.6-15.2)
[2017-12-03 08:33] LABS: MD YES
[2017-12-03 08:35] LABS: EOS#(MANUAL) 0.46 x10^3/uL (0.0-0.4); EOS% (MANUAL) 9 % (1-7); MONOS% (MANUAL) 4 % (2-9)
[2017-12-03 08:36] LABS: ANISOCYTOSIS 2+; LYMPH#(MANUAL) 1.43 x10^3/uL (1-3.4); LYMPHS% (MANUAL) 28 % (22-44); SEG#(MANUAL) 3.01 x10^3/uL (1.8-6.8); SEGS% (MANUAL) 59 % (42-75)
[2017-12-03 08:37] LABS: <PLATELET ESTIMATE> ADEQUATE; LARGE PLATELETS 1+; OVALOCYTES 1+; POLYCHROMASIA 1+; TEAR DROPS 1+
[2017-12-03] MEDS: PANTOPROZOLE 40MG TABLET PO SCH (09:20)
[2017-12-03] MEDS: CITALOPRAM 20 MG TABLET PO SCH (09:20)
[2017-12-03] MEDS: ENOXAPARIN 40 MG/0.4 ML SQ SCH (09:21)
[2017-12-03 12:20] VITALS: BP 100/64
[2017-12-03] MEDS ORDERED: TPN PER PHARMACY MC PRN (15:00)
[2017-12-03] MEDS ORDERED: [UNRECOGNIZED DRUG - OTHER] IV SCH (17:00)
[2017-12-03] MEDS ORDERED: [UNRECOGNIZED DRUG - OTHER] IV SCH (17:00)
[2017-12-03] MEDS ORDERED: DEXTROSE 70% IV SCH ×3 (17:00)
[2017-12-03] MEDS ORDERED: FAT EMULSIONS IV SCH ×3 (17:00)
[2017-12-03] MEDS ORDERED: SENNA/DOCUSATE TABLET PO PRN (17:00)
[2017-12-03] MEDS ORDERED: AMINO ACID 10% IV SCH ×3 (17:00)
[2017-12-03] MEDS ORDERED: [UNRECOGNIZED DRUG - OTHER] IV SCH (17:00)
[2017-12-03 18:49] VITALS: BP 106/69
[2017-12-03] MEDS: SIMVASTATIN 40 MG TABLET PO SCH (20:34)
[2017-12-03] MEDS: morphine SULFATE 60 MG TABLET.ER PO SCH (20:34)
[2017-12-03] MEDS: TRAZODONE 50MG TABLET PO PRN (20:34)
[2017-12-04] MEDS: OXYcodone/APAP 10/325MG TABLET PO PRN ×3 (01:15→17:20)
[2017-12-04 01:24] VITALS: BP 111/72
[2017-12-04] MEDS: IBUPROFEN 200 MG TABLET PO PRN ×2 (03:30→17:20)
[2017-12-04] MEDS: INSULIN REGULAR LOW DOSE Q6H X 48HRS SQ-INSULIN SCH ×3 (05:26→21:00)
[2017-12-04] MEDS: KETOROLAC 30 MG/1 ML IVPush PRN ×2 (05:31→12:20)
[2017-12-04 05:38] LABS: CHLORIDE 108 mmol/L (98-107)
[2017-12-04 05:52] LABS: ANION GAP 8 mmol/L (5-15); CALCIUM 7.6 mg/dL (8.5-10.1); CREATININE 0.59 mg/dL (0.55-1.02); PREALBUMIN 7.4 mg/dL (20.0-40.0); TRIGLYCERIDES 66 mg/dL (50-200)
[2017-12-04 06:50] VITALS: BP 100/66
[2017-12-04] MEDS: ENOXAPARIN 40 MG/0.4 ML SQ SCH (08:06)
[2017-12-04] MEDS: PANTOPRAZOLE 40 MG IV IVPush SCH (08:06)
[2017-12-04] MEDS: CITALOPRAM 20 MG TABLET PO SCH (08:06)
[2017-12-04] MEDS ORDERED: D5%-0.45NACL+KCL 20MEQ 1,000 ML IV SCH (11:00)
[2017-12-04 12:44] VITALS: BP 97/62
[2017-12-04] MEDS: FILTER, DISP 1.2 MICRON FOR TPN/PVN IV PRN (16:24)
[2017-12-04] MEDS ORDERED: AMINO ACID 10% IV SCH (17:00)
[2017-12-04] MEDS ORDERED: DEXTROSE 70% IV SCH (17:00)
[2017-12-04] MEDS ORDERED: [UNRECOGNIZED DRUG - OTHER] IV SCH (17:00)
[2017-12-04] MEDS ORDERED: FAT EMULSIONS IV SCH (17:00)
[2017-12-04 20:13] VITALS: BP 102/62
[2017-12-04] MEDS: morphine SULFATE 60 MG TABLET.ER PO SCH (21:00)
[2017-12-04 21:25] LABS: ANION GAP 6 mmol/L (5-15); CALCIUM 8.2 mg/dL (8.5-10.1); CHLORIDE 106 mmol/L (98-107); CREATININE 0.59 mg/dL (0.55-1.02)
[2017-12-04] MEDS: SIMVASTATIN 40 MG TABLET PO SCH (22:07)
[2017-12-04] MEDS: D5%-0.45% NACL 1,000 ML IV SCH (22:09)
[2017-12-05] MEDS: INSULIN REGULAR LOW DOSE Q6H X 48HRS SQ-INSULIN SCH ×4 (03:00→21:00)
[2017-12-05 03:52] VITALS: BP 101/65
[2017-12-05] MEDS: OXYcodone/APAP 10/325MG TABLET PO PRN ×3 (03:57→18:25)
[2017-12-05 04:55] LABS: CALCIUM 7.7 mg/dL (8.5-10.1); CHLORIDE 108 mmol/L (98-107)
[2017-12-05 04:58] LABS: ANION GAP 6 mmol/L (5-15); CREATININE 0.47 mg/dL (0.55-1.02)
[2017-12-05] MEDS: IBUPROFEN 200 MG TABLET PO PRN ×3 (06:29→21:31)
[2017-12-05] MEDS: ENOXAPARIN 40 MG/0.4 ML SQ SCH (08:05)
[2017-12-05] MEDS: PANTOPRAZOLE 40 MG IV IVPush SCH (08:05)
[2017-12-05] MEDS: CITALOPRAM 20 MG TABLET PO SCH (08:05)
[2017-12-05 08:15] VITALS: BP 119/77
[2017-12-05 13:42] VITALS: BP 110/69
[2017-12-05] MEDS ORDERED: [UNRECOGNIZED DRUG - OTHER] IV SCH (17:00)
[2017-12-05] MEDS ORDERED: AMINO ACID 10% IV SCH (17:00)
[2017-12-05] MEDS ORDERED: FAT EMULSIONS IV SCH (17:00)
[2017-12-05] MEDS ORDERED: DEXTROSE 70% IV SCH (17:00)
[2017-12-05] MEDS: FILTER, DISP 1.2 MICRON FOR TPN/PVN IV PRN (17:16)
[2017-12-05 19:04] VITALS: BP 111/64
[2017-12-05] MEDS: SIMVASTATIN 40 MG TABLET PO SCH (21:31)
[2017-12-05] MEDS: TRAZODONE 50MG TABLET PO PRN (21:41)
[2017-12-06 02:20] VITALS: BP 100/59
[2017-12-06] MEDS: OXYcodone/APAP 10/325MG TABLET PO PRN ×3 (02:39→23:04)
[2017-12-06] MEDS: INSULIN REGULAR LOW DOSE Q6H X 48HRS SQ-INSULIN SCH ×3 (03:00→13:25)
[2017-12-06 04:25] LABS: ANION GAP 5 mmol/L (5-15); CALCIUM 8.3 mg/dL (8.5-10.1); CHLORIDE 111 mmol/L (98-107); CREATININE 0.45 mg/dL (0.55-1.02)
[2017-12-06 07:47] VITALS: BP 104/65
[2017-12-06] MEDS: CITALOPRAM 20 MG TABLET PO SCH (08:27)
[2017-12-06] MEDS: PANTOPRAZOLE 40 MG IV IVPush SCH (08:28)
[2017-12-06] MEDS: ENOXAPARIN 40 MG/0.4 ML SQ SCH (08:28)
[2017-12-06 13:12] VITALS: BP 112/69
[2017-12-06] MEDS ORDERED: AMINO ACID 10% IV SCH (17:00)
[2017-12-06] MEDS ORDERED: [UNRECOGNIZED DRUG - OTHER] IV SCH (17:00)
[2017-12-06] MEDS ORDERED: DEXTROSE 70% IV SCH (17:00)
[2017-12-06] MEDS ORDERED: FAT EMULSIONS IV SCH (17:00)
[2017-12-06] MEDS: IBUPROFEN 200 MG TABLET PO PRN (17:03)
[2017-12-06] MEDS: FILTER, DISP 1.2 MICRON FOR TPN/PVN IV PRN (18:07)
[2017-12-06 19:23] VITALS: BP 106/74
[2017-12-06] MEDS: TRAZODONE 50MG TABLET PO PRN (23:04)
[2017-12-06] MEDS: SIMVASTATIN 40 MG TABLET PO SCH (23:04)
[2017-12-07] MEDS: IBUPROFEN 200 MG TABLET PO PRN ×2 (03:53→11:16)
[2017-12-07 03:54] VITALS: BP 93/60
[2017-12-07 06:04] LABS: ANION GAP 6 mmol/L (5-15); CALCIUM 8.7 mg/dL (8.5-10.1); CHLORIDE 109 mmol/L (98-107); CREATININE 0.49 mg/dL (0.55-1.02)
[2017-12-07 07:13] VITALS: BP 97/63
[2017-12-07] MEDS: ENOXAPARIN 40 MG/0.4 ML SQ SCH (08:32)
[2017-12-07] MEDS: CITALOPRAM 20 MG TABLET PO SCH (08:32)
[2017-12-07] MEDS: PANTOPRAZOLE 40 MG IV IVPush SCH (08:32)
[2017-12-07] MEDS: INSULIN REGULAR LOW DOSE QDAY SQ-INSULIN SCH (08:33)
[2017-12-07 13:43] VITALS: BP 96/63
[2017-12-07] MEDS: OXYcodone/APAP 10/325MG TABLET PO PRN ×2 (13:46→22:01)
[2017-12-07] MEDS ORDERED: FAT EMULSIONS IV SCH (17:00)
[2017-12-07] MEDS ORDERED: AMINO ACID 10% IV SCH (17:00)
[2017-12-07] MEDS ORDERED: [UNRECOGNIZED DRUG - OTHER] IV SCH (17:00)
[2017-12-07] MEDS ORDERED: DEXTROSE 70% IV SCH (17:00)
[2017-12-07] MEDS ORDERED: TPN PER PHARMACY MC PRN (17:00)
[2017-12-07] MEDS: FILTER, DISP 1.2 MICRON FOR TPN/PVN IV PRN (17:22)
[2017-12-07 20:04] VITALS: BP 102/66
[2017-12-07] MEDS: SIMVASTATIN 40 MG TABLET PO SCH (20:13)
[2017-12-07] MEDS: TRAZODONE 50MG TABLET PO PRN (22:01)
[2017-12-08 00:59] VITALS: BP 98/61
[2017-12-08 07:12] VITALS: BP 103/66
[2017-12-08] MEDS: PANTOPRAZOLE 40 MG IV IVPush SCH (08:44)
[2017-12-08] MEDS: ENOXAPARIN 40 MG/0.4 ML SQ SCH (08:44)
[2017-12-08] MEDS: CITALOPRAM 20 MG TABLET PO SCH (08:44)
[2017-12-08] MEDS: INSULIN REGULAR LOW DOSE QDAY SQ-INSULIN SCH (09:00)
[2017-12-08] MEDS ORDERED: [UNRECOGNIZED DRUG - REMARK] XX PRN (09:30)
[2017-12-08] MEDS: D5%-0.45% NACL 1,000 ML IV SCH ×2 (10:53→10:59)
[2017-12-08] MEDS: OXYcodone/APAP 10/325MG TABLET PO PRN (13:13)
[2017-12-08 15:14] VITALS: BP 110/66
[2017-12-08] MEDS ORDERED: [UNRECOGNIZED DRUG - OTHER] IV SCH (18:00)
[2017-12-08] MEDS ORDERED: FAT EMULSIONS IV SCH (18:00)
[2017-12-08] MEDS ORDERED: AMINO ACID 10% IV SCH (18:00)
[2017-12-08] MEDS ORDERED: DEXTROSE 70% IV SCH (18:00)
[2017-12-08 20:00] VITALS: BP 112/70
== END 2017-12-08 20:17 | disposition home health service (06) | DRG 439 ==
LOC: ED 20:00 → EDIP 23:09 → 4EST 23:29
PROVIDERS: ADMIT Family Medicine; ATTEND Family Medicine
PROC: 0W993ZZ Drainage of Right Pleural Cavity, Percutaneous Approach (ICD-10-PCS; principal; 2017-11-27)
PROC: 3E0436Z Introduction of Nutritional Substance into Central Vein, Percutaneous Approach (ICD-10-PCS; 2017-11-27)
PROC: BB4BZZZ Ultrasonography of Pleura (ICD-10-PCS; 2017-11-27)
PROC: 0W9930Z Drainage of Right Pleural Cavity with Drainage Device, Percutaneous Approach (ICD-10-PCS; 2017-11-29)
PROC: 02HV33Z Insertion of Infusion Device into Superior Vena Cava, Percutaneous Approach (ICD-10-PCS; 2017-12-04)
PROC: B5181ZA Fluoroscopy of Superior Vena Cava using Low Osmolar Contrast, Guidance (ICD-10-PCS; 2017-12-04)
DX: K85.00 Idiopathic acute pancreatitis without necrosis or infection (principal); J90 Pleural effusion, not elsewhere classified; J93.82 Other air leak; E11.65 Type 2 diabetes mellitus with hyperglycemia; K76.0 Fatty (change of) liver, not elsewhere classified; N12 Tubulo-interstitial nephritis, not specified as acute or chronic; J93.9 Pneumothorax, unspecified; K86.3 Pseudocyst of pancreas; G89.29 Other chronic pain; K86.1 Other chronic pancreatitis; E78.5 Hyperlipidemia, unspecified; K21.9 Gastro-esophageal reflux disease without esophagitis; F32.9 Major depressive disorder, single episode, unspecified; F41.9 Anxiety disorder, unspecified; G47.00 Insomnia, unspecified; Z82.49 Family history of ischemic heart disease and other diseases of the circulatory system; Z83.3 Family history of diabetes mellitus; Z80.1 Family history of malignant neoplasm of trachea, bronchus and lung; Z79.899 Other long term (current) drug therapy; Z87.891 Personal history of nicotine dependence; Z90.49 Acquired absence of other specified parts of digestive tract; Z90.710 Acquired absence of both cervix and uterus; Z98.84 Bariatric surgery status; Z90.89 Acquired absence of other organs; Z88.8 Allergy status to other drugs, medicaments and biological substances; Z88.1 Allergy status to other antibiotic agents
CPT/HCPCS: 32555; 32557; 36415; 36569; 71045; 71046; 71048; 71260; 74177; 76937; 77001; 80048; 80053; 81001; 81003; 82040; 82042; 82150; 82787; 82962; 83615; 83690; 83735; 84100; 84134; 84157; 84443; 84478; 85025; 85610; 87070; 87086; 87205; 88112; 88305; 93005; 96361; 96374; 96375; J0610; J0696; J1170; J1650; J1885; J2405; J3010; J3475; J3480; J3490; Q9967; C1729; C1751; C9113; J2270; J2310; J3420; J7030

== ENCOUNTER 2018-06-28 12:52 | Emergency (ER) | payer MEDICAID ==
[~2018-06-28] VITALS: Ht 170.2 cm; Wt 80.6 kg
[~2018-06-28 12:52] MED LIST changes: +OXYC-432 PO; -OXYC1TAB9 PO; +TRAZ-137 PO; -TRAZ100T15 PO
[2018-06-28 12:58] VITALS: BP 124/77
[2018-06-28] MEDS ORDERED: KETOROLAC 30 MG/1 ML IM ONE (13:30)
[2018-06-28] MEDS ORDERED: KETOROLAC 30 MG/1 ML ONE (13:31)
== END 2018-06-28 14:29 | disposition home or self-care (01) ==
LOC: ED 14:01
DX: S52.124A Nondisplaced fracture of head of right radius, initial encounter for closed fracture (principal); S93.401A Sprain of unspecified ligament of right ankle, initial encounter; K21.9 Gastro-esophageal reflux disease without esophagitis; Z88.2 Allergy status to sulfonamides; Z79.899 Other long term (current) drug therapy; Z90.49 Acquired absence of other specified parts of digestive tract; W19.XXXA Unspecified fall, initial encounter; Y93.89 Activity, other specified; Y99.8 Other external cause status; Y92.009 Unspecified place in unspecified non-institutional (private) residence as the place of occurrence of the external cause
CPT/HCPCS: 29125; 73080; 73130; 73610; 96372; 99284; J1885

== ENCOUNTER 2019-03-03 08:03 | Emergency (ER) | payer MEDICAID ==
[~2019-03-03] VITALS: Ht 170.2 cm; Wt 78.9 kg
[2019-03-03] MEDS ORDERED: ONDANSETRON 2MG/ML, 2ML IVPush ONE (08:30)
[2019-03-03] MEDS ORDERED: SODIUM CHLORIDE FLUSH 10ML SYR IVF ONE (08:30)
[2019-03-03 08:36] LABS: BASOPHILS # (AUTO) 0.01 x10^3/uL (0-0.1); BASOPHILS % (AUTO) 0 % (0-1); EOSINOPHILS # (AUTO) 0.21 x10^3/uL (0-0.4); EOSINOPHILS % (AUTO) 3 % (1-7); LYMPHOCYTES # (AUTO) 1.76 x10^3/uL (1-3.4); LYMPHOCYTES % (AUTO) 22 % (22-44); MD NO; MEAN CORPUSCULAR HEMOGLOBIN 29.8 pg (27.0-34.8); MEAN CORPUSCULAR HGB CONC 32.8 g/dL (32.4-35.8); MEAN CORPUSCULAR VOLUME 90.8 fL (80-100); MEAN PLATELET VOLUME 7.9 fL (7.4-10.4); MONOCYTES # (AUTO) 0.37 x10^3/uL (0.2-0.8); MONOCYTES % (AUTO) 5 % (2-9); NEUTROPHILS # (AUTO) 5.72 x10^3/uL (1.8-6.8); NEUTROPHILS % (AUTO) 71 % (42-75); PLATELET COUNT 219 x10^3/uL (130-400); RED BLOOD COUNT 4.72 x10^6/uL (3.82-5.3); RED CELL DISTRIBUTION WIDTH 14.5 % (9.6-15.2)
[2019-03-03] MEDS ORDERED: ONDANSETRON 2MG/ML, 2ML ONE (08:47)
[2019-03-03] MEDS ORDERED: HYDROmorphone 2 MG/ML, 1ML ONE (08:47)
[2019-03-03 08:48] LABS: ALANINE AMINOTRANSFERASE 16 U/L (12-78); ALBUMIN 3.6 g/dL (3.4-5.0); ANION GAP 4 mmol/L (5-15); CHLORIDE 107 mmol/L (98-107); CREATININE 0.75 mg/dL (0.55-1.02)
[2019-03-03 08:50] LABS: ALKALINE PHOSPHATASE 99 U/L (45-117); BILIRUBIN,TOTAL 0.6 mg/dL (0.2-1.0); TOTAL PROTEIN 6.9 g/dL (6.4-8.2)
[2019-03-03] MEDS: HYDROmorphone 2 MG/ML, 1ML IVPush PRN ×2 (08:50→10:01)
--- NOTE | 2019-03-03 08:59 | NUR ---
PT ABLE TO AMBULATE TO BR WITH STEADY GAIT. URINE COLLECTED/SENT TO LAB. IV PLACED, PT MEDICATED FOR 8.5/10 ABD PAIN AND NAUSEA. LAB RESULTS REVIEWED. PT PLACED ON BP CUFF, PULSE OX. CALL LIGHT WITHIN REACH, LIGHTS DIMMED
--- NOTE | 2019-03-03 09:08 | NUR ---
ALL RESULTS BACK, PT FOR RECHECK.
[2019-03-03 09:20] VITALS: BP 102/64
--- NOTE | 2019-03-03 10:01 | NUR ---
PT ASKING FOR ADDITIONAL MED PRIOR TO DISCHARGE. 2ND DOSE OF DILAUDID GIVEN PER ERP ORDER.
[2019-03-04] MEDS ORDERED: ACYCLOVIR (02:13)
[2019-03-04] MEDS ORDERED: CARI250T PO (02:14)
[2019-03-04] MEDS ORDERED: HYDR4TAB48 PO (19:26)
== END 2019-03-03 10:11 | disposition home or self-care (01) ==
LOC: ED 09:16
DX: K85.90 Acute pancreatitis without necrosis or infection, unspecified (principal); E78.5 Hyperlipidemia, unspecified; K21.9 Gastro-esophageal reflux disease without esophagitis; G89.29 Other chronic pain; Z90.49 Acquired absence of other specified parts of digestive tract; Z90.710 Acquired absence of both cervix and uterus
CPT/HCPCS: 36415; 80053; 83690; 85025; 96374; 96375; 96376; 99283; J1170; J2405

== ENCOUNTER 2019-03-04 01:29 | Emergency (ER) | payer MEDICAID ==
[~2019-03-04] VITALS: Ht 170.2 cm; Wt 80.4 kg
[2019-03-04] MEDS ORDERED: FAMOTIDINE 20 MG/2 ML IVP ONE (02:00)
[2019-03-04] MEDS ORDERED: ONDANSETRON 2MG/ML, 2ML IVPush ONE (02:00)
[2019-03-04] MEDS ORDERED: SODIUM CHLORIDE FLUSH 10ML SYR IVF ONE (02:00)
[2019-03-04] MEDS ORDERED: ONDANSETRON 2MG/ML, 2ML ONE (02:03)
[2019-03-04] MEDS ORDERED: FAMOTIDINE 20 MG/2 ML ONE (02:03)
[2019-03-04] MEDS ORDERED: HYDROmorphone 2 MG/ML, 1ML ONE ×2 (02:04→03:49)
[2019-03-04] MEDS ORDERED: ACYCLOVIR (02:13)
[2019-03-04] MEDS ORDERED: CARI250T PO (02:14)
[2019-03-04] MEDS: HYDROmorphone 2 MG/ML, 1ML IVPush PRN ×2 (02:26→03:50)
--- NOTE | 2019-03-04 02:39 | NUR ---
IV PLACED. PT IN HOSPITAL GOWN. PT MEDICATED WTIH ORDERED MEDS. PT PLACED ON VITALS MONITORS. BILAT BEDRAILS ARE UP. CALL LIGHT WITHIN REACH. WILL CONTINUE TO MONITOR.
[2019-03-04 02:44] LABS: BASOPHILS # (AUTO) 0.04 x10^3/uL (0-0.1); BASOPHILS % (AUTO) 1 % (0-1); EOSINOPHILS # (AUTO) 0.27 x10^3/uL (0-0.4); EOSINOPHILS % (AUTO) 4 % (1-7); LYMPHOCYTES # (AUTO) 1.91 x10^3/uL (1-3.4); LYMPHOCYTES % (AUTO) 30 % (22-44); MD NO; MEAN CORPUSCULAR HEMOGLOBIN 30.5 pg (27.0-34.8); MEAN CORPUSCULAR HGB CONC 33.1 g/dL (32.4-35.8); MEAN CORPUSCULAR VOLUME 92.1 fL (80-100); MEAN PLATELET VOLUME 8.4 fL (7.4-10.4); MONOCYTES % (AUTO) 5 % (2-9); NEUTROPHILS # (AUTO) 3.75 x10^3/uL (1.8-6.8); NEUTROPHILS % (AUTO) 60 % (42-75); PLATELET COUNT 195 x10^3/uL (130-400); RED BLOOD COUNT 4.22 x10^6/uL (3.82-5.3)
[2019-03-04 02:53] LABS: ALANINE AMINOTRANSFERASE 14 U/L (12-78); ANION GAP 5 mmol/L (5-15); CALCIUM 7.9 mg/dL (8.5-10.1); CHLORIDE 110 mmol/L (98-107); CREATININE 0.78 mg/dL (0.55-1.02)
[2019-03-04 02:58] LABS: ALKALINE PHOSPHATASE 81 U/L (45-117); BILIRUBIN,TOTAL 0.4 mg/dL (0.2-1.0)
[2019-03-04] MEDS ORDERED: HYDROmorphone 2 MG/ML, 1ML IVPush PRN (03:30)
[2019-03-04] MEDS ORDERED: OMNIPAQUE 350 MG/ML, 100ML BOTTLE ONE (04:15)
[2019-03-04 04:44] VITALS: BP 104/60
[2019-03-04] MEDS ORDERED: HYDR4TAB48 PO (19:26)
== END 2019-03-04 04:46 | disposition home or self-care (01) ==
LOC: ED 01:55
DX: K86.1 Other chronic pancreatitis (principal); R10.13 Epigastric pain; E78.5 Hyperlipidemia, unspecified; K21.9 Gastro-esophageal reflux disease without esophagitis; G89.29 Other chronic pain; Z88.2 Allergy status to sulfonamides; Z90.49 Acquired absence of other specified parts of digestive tract; Z90.710 Acquired absence of both cervix and uterus
CPT/HCPCS: 36415; 74177; 80053; 83690; 84703; 85025; 96374; 96375; 96376; 99284; J1170; J2405; J3490; Q9967

== ENCOUNTER 2019-03-04 15:29 | Inpatient (IN) | payer MEDICAID ==
[~2019-03-04] VITALS: Ht 170.2 cm; Wt 83.8 kg
[~2019-03-04 15:29] MED LIST changes: +ACYCLOVIR
[2019-03-04 16:32] LABS: MEAN CORPUSCULAR HEMOGLOBIN 30.3 pg (27.0-34.8); MEAN CORPUSCULAR HGB CONC 33.2 g/dL (32.4-35.8); MEAN CORPUSCULAR VOLUME 91.4 fL (80-100); MEAN PLATELET VOLUME 8.2 fL (7.4-10.4); PLATELET COUNT 199 x10^3/uL (130-400); RED BLOOD COUNT 4.56 x10^6/uL (3.82-5.3); RED CELL DISTRIBUTION WIDTH 14.9 % (9.6-15.2)
[2019-03-04 16:37] LABS: ALANINE AMINOTRANSFERASE 16 U/L (12-78); ALBUMIN 3.4 g/dL (3.4-5.0); ANION GAP 4 mmol/L (5-15); CALCIUM 8.8 mg/dL (8.5-10.1); CHLORIDE 105 mmol/L (98-107); CREATININE 0.95 mg/dL (0.55-1.02)
[2019-03-04 16:39] LABS: ALKALINE PHOSPHATASE 95 U/L (45-117); BILIRUBIN,TOTAL 0.7 mg/dL (0.2-1.0); TOTAL PROTEIN 6.7 g/dL (6.4-8.2)
[2019-03-04 16:51] LABS: BASOPHILS # (AUTO) 0.02 x10^3/uL (0-0.1); BASOPHILS % (AUTO) 0 % (0-1); EOSINOPHILS # (AUTO) 0.04 x10^3/uL (0-0.4); EOSINOPHILS % (AUTO) 0 % (1-7); LYMPHOCYTES # (AUTO) 0.47 x10^3/uL (1-3.4); LYMPHOCYTES % (AUTO) 4 % (22-44); MD SCAN; MONOCYTES # (AUTO) 0.22 x10^3/uL (0.2-0.8); MONOCYTES % (AUTO) 2 % (2-9); NEUTROPHILS # (AUTO) 11.67 x10^3/uL (1.8-6.8); NEUTROPHILS % (AUTO) 94 % (42-75)
--- NOTE | 2019-03-04 17:55 | NUR ---
pt to room from lobby
--- NOTE | 2019-03-04 18:14 | NUR ---
PT PRESENTING TO ER FOR "FLAIR UP OF CHRONIC PANCREATITIS", N/V, LOWER BACK PAIN AND CONSTIPATION. STATES TOOK AT HOME PAIN MEDS (DILAUDID, MORPHINE AND PERCOCET) PRIOR TO COMING TO ER. CONNECTED TO MONITORS, VSS AT THIS TIME. FAMILY AT BEDSIDE. UA COLLECTED AND SENT TO LAB. OTHER LABS ORDERED IN PIT RESULTED. CALL LIGHT WITHIN REACH. AWAITING MD ASSESSMENT AND FURTHER ORDERS AT THIS TIME
[2019-03-04] MEDS ORDERED: SODIUM CHLORIDE FLUSH 10ML SYR IVF ONE (18:30)
[2019-03-04] MEDS ORDERED: ONDANSETRON 2MG/ML, 2ML IVPush ONE (18:30)
[2019-03-04] MEDS ORDERED: HYDROmorphone 2 MG/ML, 1ML IVPush PRN (18:30)
[2019-03-04 18:31] LABS: MICROSCOPIC AUTO
[2019-03-04 18:32] LABS: CULTURE INDICATED? YES
[2019-03-04] MEDS ORDERED: HYDROmorphone 2 MG/ML, 1ML ONE (18:45)
[2019-03-04] MEDS ORDERED: ONDANSETRON 2MG/ML, 2ML ONE (18:45)
[2019-03-04] MEDS ORDERED: SODIUM CHLORIDE 0.9% 1,000ML IVBOLUS ONE (19:00)
--- NOTE | 2019-03-04 19:16 | NUR ---
pt resting on gurney. pt medicated for pain per emar. pt reports pain is better
[2019-03-04] MEDS ORDERED: HYDR4TAB48 PO (19:26)
--- NOTE | 2019-03-04 19:48 | NUR ---
reoprt given to mirza ovalle
[2019-03-04] MEDS ORDERED: CARISOPRODOL 250 MG HOMEMEDPO PRN (20:00)
[2019-03-04] MEDS ORDERED: ACETAMINOPHEN 325 MG TABLET PO PRN (20:00)
[2019-03-04] MEDS ORDERED: ENALAPRILAT 1.25 MG/ML, 2ML IVPush PRN (20:00)
[2019-03-04] MEDS ORDERED: ONDANSETRON ODT 4 MG PO PRN (20:00)
[2019-03-04] MEDS ORDERED: morphine SULFATE 10 MG/ML, 1ML IVPush PRN (20:00)
[2019-03-04] MEDS ORDERED: hydrALAzine 20 MG/ML, 1ML IVPush PRN (20:00)
[2019-03-04] MEDS ORDERED: ONDANSETRON 2MG/ML, 2ML IVPush PRN (20:00)
[2019-03-04] MEDS ORDERED: OXYcodone/APAP 5/325MG TABLET PO PRN (20:00)
[2019-03-04 20:14] VITALS: BP 105/73
[2019-03-04] MEDS: HEPARIN 5,000 UNITS/ML, 1ML SQ SCH (22:35)
[2019-03-04] MEDS: SIMVASTATIN 40 MG TABLET PO SCH (22:35)
[2019-03-04] MEDS: HYDROmorphone 2 MG/ML, 1ML IVPush PRN (22:36)
[2019-03-04] MEDS: NS + 20MEQ KCL 1,000 ML IV SCH (22:40)
[2019-03-04] MEDS: TRAZODONE 100MG TABLET PO SCH (22:42)
[2019-03-04] MEDS: CEFTRIAXONE PMX 1GM/50ML 50 ML IV SCH (22:43)
[2019-03-05] VITALS (9 sets, daily range): BP systolic 85–108; BP diastolic 53–67
[2019-03-05] MEDS ORDERED: NICOTINE 14MG/24 HR PATCH.TD24 TD ONE (02:00)
[2019-03-05] MEDS: HYDROmorphone 2 MG/ML, 1ML IVPush PRN (02:57)
[2019-03-05 05:58] LABS: BASOPHILS # (AUTO) 0.01 x10^3/uL (0-0.1); BASOPHILS % (AUTO) 0 % (0-1); EOSINOPHILS # (AUTO) 0.18 x10^3/uL (0-0.4); EOSINOPHILS % (AUTO) 2 % (1-7); LYMPHOCYTES # (AUTO) 1.69 x10^3/uL (1-3.4); LYMPHOCYTES % (AUTO) 21 % (22-44); MD NO; MEAN CORPUSCULAR HGB CONC 32.9 g/dL (32.4-35.8); MEAN CORPUSCULAR VOLUME 91.3 fL (80-100); MEAN PLATELET VOLUME 7.9 fL (7.4-10.4); MONOCYTES # (AUTO) 0.28 x10^3/uL (0.2-0.8); MONOCYTES % (AUTO) 4 % (2-9); NEUTROPHILS # (AUTO) 5.79 x10^3/uL (1.8-6.8); NEUTROPHILS % (AUTO) 73 % (42-75); PLATELET COUNT 161 x10^3/uL (130-400); RED BLOOD COUNT 3.67 x10^6/uL (3.82-5.3); RED CELL DISTRIBUTION WIDTH 14.7 % (9.6-15.2)
[2019-03-05 06:05] LABS: ALANINE AMINOTRANSFERASE 12 U/L (12-78); ALBUMIN 2.5 g/dL (3.4-5.0); ANION GAP 7 mmol/L (5-15); CALCIUM 7.7 mg/dL (8.5-10.1); CHLORIDE 111 mmol/L (98-107); CREATININE 0.57 mg/dL (0.55-1.02)
[2019-03-05 06:07] LABS: ALKALINE PHOSPHATASE 68 U/L (45-117); BILIRUBIN,TOTAL 0.4 mg/dL (0.2-1.0)
[2019-03-05] MEDS: HEPARIN 5,000 UNITS/ML, 1ML SQ SCH ×3 (06:20→21:07)
[2019-03-05] MEDS: OMEPRAZOLE 20 MG CAPSULE.DR PO SCH (06:31)
[2019-03-05] MEDS: NS + 20MEQ KCL 1,000 ML IV SCH ×2 (06:32→15:17)
[2019-03-05] MEDS: CITALOPRAM 20 MG TABLET PO SCH (09:26)
[2019-03-05] MEDS ORDERED: HYDROmorphone 2 MG/ML, 1ML IVPush PRN (13:00)
[2019-03-05] MEDS: morphine SULFATE 10 MG/ML, 1ML IVPush PRN ×3 (13:40→22:33)
[2019-03-05] MEDS: TRAZODONE 100MG TABLET PO SCH (21:07)
[2019-03-05] MEDS: SIMVASTATIN 40 MG TABLET PO SCH (21:07)
[2019-03-05] MEDS: CEFTRIAXONE PMX 1GM/50ML 50 ML IV SCH (22:30)
[2019-03-06 01:07] VITALS: BP 96/63
[2019-03-06] MEDS: NS + 20MEQ KCL 1,000 ML IV SCH (02:00)
[2019-03-06] MEDS: OXYcodone/APAP 5/325MG TABLET PO PRN ×4 (02:02→20:51)
[2019-03-06] MEDS: morphine SULFATE 10 MG/ML, 1ML IVPush PRN (04:22)
[2019-03-06 06:15] LABS: BASOPHILS # (AUTO) 0.02 x10^3/uL (0-0.1); BASOPHILS % (AUTO) 1 % (0-1); EOSINOPHILS # (AUTO) 0.21 x10^3/uL (0-0.4); EOSINOPHILS % (AUTO) 5 % (1-7); LYMPHOCYTES # (AUTO) 1.74 x10^3/uL (1-3.4); LYMPHOCYTES % (AUTO) 37 % (22-44); MD NO; MEAN CORPUSCULAR HGB CONC 33.4 g/dL (32.4-35.8); MEAN CORPUSCULAR VOLUME 92.6 fL (80-100); MEAN PLATELET VOLUME 8.7 fL (7.4-10.4); MONOCYTES # (AUTO) 0.25 x10^3/uL (0.2-0.8); MONOCYTES % (AUTO) 5 % (2-9); NEUTROPHILS % (AUTO) 53 % (42-75); PLATELET COUNT 153 x10^3/uL (130-400); RED BLOOD COUNT 3.76 x10^6/uL (3.82-5.3); RED CELL DISTRIBUTION WIDTH 14.7 % (9.6-15.2)
[2019-03-06 06:19] LABS: CALCIUM 8.3 mg/dL (8.5-10.1); CHLORIDE 113 mmol/L (98-107)
[2019-03-06 06:22] LABS: ANION GAP 4 mmol/L (5-15); CREATININE 0.57 mg/dL (0.55-1.02)
[2019-03-06] MEDS: HEPARIN 5,000 UNITS/ML, 1ML SQ SCH ×3 (06:25→20:51)
[2019-03-06] MEDS: OMEPRAZOLE 20 MG CAPSULE.DR PO SCH (06:25)
[2019-03-06 07:36] VITALS: BP 94/58
[2019-03-06] MEDS: CITALOPRAM 20 MG TABLET PO SCH (09:03)
[2019-03-06 12:03] VITALS: BP 97/62
[2019-03-06 19:21] VITALS: BP 103/65
[2019-03-06] MEDS: TRAZODONE 100MG TABLET PO SCH (20:51)
[2019-03-06] MEDS: SIMVASTATIN 40 MG TABLET PO SCH (20:51)
[2019-03-06] MEDS: CEFTRIAXONE PMX 1GM/50ML 50 ML IV SCH (22:57)
[2019-03-07 01:40] VITALS: BP 106/63
[2019-03-07] MEDS: OXYcodone/APAP 5/325MG TABLET PO PRN ×3 (02:16→11:50)
[2019-03-07] MEDS: HEPARIN 5,000 UNITS/ML, 1ML SQ SCH ×2 (06:14→13:30)
[2019-03-07] MEDS: OMEPRAZOLE 20 MG CAPSULE.DR PO SCH (06:14)
[2019-03-07 08:10] VITALS: BP 102/68
[2019-03-07] MEDS ORDERED: CEFDINIR 300 MG CAPSULE PO SCH (09:00)
[2019-03-07] MEDS: CITALOPRAM 20 MG TABLET PO SCH (09:16)
[2019-03-07] MEDS ORDERED: CEFD300C37 PO (13:03)
[2019-03-07 13:17] VITALS: BP 101/68
== END 2019-03-07 14:05 | disposition home or self-care (01) | DRG 690 ==
LOC: ED 19:11 → EDIP 19:14 → 3NE 20:12 → DCLOUNGE 03-07 14:00
PROVIDERS: ADMIT Family Medicine; ATTEND Family Medicine
DX: N12 Tubulo-interstitial nephritis, not specified as acute or chronic (principal); F19.20 Other psychoactive substance dependence, uncomplicated; K86.1 Other chronic pancreatitis; E78.5 Hyperlipidemia, unspecified; Z88.2 Allergy status to sulfonamides; Z88.8 Allergy status to other drugs, medicaments and biological substances; Z83.3 Family history of diabetes mellitus; Z82.49 Family history of ischemic heart disease and other diseases of the circulatory system; Z80.1 Family history of malignant neoplasm of trachea, bronchus and lung; F17.200 Nicotine dependence, unspecified, uncomplicated; G47.00 Insomnia, unspecified; K21.9 Gastro-esophageal reflux disease without esophagitis; Z90.710 Acquired absence of both cervix and uterus
CPT/HCPCS: 36415; 76700; 80048; 80053; 81001; 83690; 85025; 87086; 96374; 96375; 99285; G0378; J0696; J1170; J1644; J2405; J3480; J2270; J7030

== ENCOUNTER 2019-09-03 10:09 | Emergency (ER) | payer MEDICAID ==
[~2019-09-03] VITALS: Ht 170.2 cm; Wt 78.9 kg
[~2019-09-03 10:09] MED LIST changes: +CEFD300C37 PO
--- NOTE | 2019-09-03 10:31 | NUR ---
TASK RN: FIRST CONTACT WITH PT. Provided medications per EMAR. NADN. No needs expressed.
--- NOTE | 2019-09-03 10:51 | NUR ---
PT PRESENTS TO ED WITH C/O GENERALIZED ABD PAIN RADIATING TO BILATERAL FLANK ONSET THIS AM WITH N/V/D. PT STATES SHE HAS HX PANCREATITIS WITH SIMILAR SYMPTOMS IN PAST. PT INSTRUCTED TO PROVIDE CLEAN CATCH UA, SUPPLIES PROVIDED; PT UP TO BATHROOM WITH STEADY GAIT AT THIS TIME.
[2019-09-03] MEDS ORDERED: SODIUM CHLORIDE FLUSH 10ML SYR IVF ONE (11:00)
[2019-09-03] MEDS ORDERED: ONDANSETRON 2MG/ML, 2ML IVPush ONE (11:00)
[2019-09-03] MEDS ORDERED: SODIUM CHLORIDE 0.9% 1,000ML IVBOLUS ONE (11:00)
[2019-09-03] MEDS ORDERED: FAMOTIDINE 20 MG/2 ML IV ONE (11:00)
[2019-09-03 11:10] LABS: BASOPHILS # (AUTO) 0.03 x10^3/uL (0-0.1); BASOPHILS % (AUTO) 1 % (0-1); EOSINOPHILS # (AUTO) 0.17 x10^3/uL (0-0.4); EOSINOPHILS % (AUTO) 3 % (1-7); LYMPHOCYTES % (AUTO) 23 % (22-44); MD NO; MEAN CORPUSCULAR HEMOGLOBIN 30.5 pg (27.0-34.8); MEAN CORPUSCULAR HGB CONC 32.6 g/dL (32.4-35.8); MEAN CORPUSCULAR VOLUME 93.5 fL (80-100); MEAN PLATELET VOLUME 8.8 fL (7.4-10.4); MONOCYTES # (AUTO) 0.28 x10^3/uL (0.2-0.8); MONOCYTES % (AUTO) 5 % (2-9); NEUTROPHILS % (AUTO) 69 % (42-75); PLATELET COUNT 212 x10^3/uL (130-400); RED BLOOD COUNT 4.79 x10^6/uL (3.82-5.3); RED CELL DISTRIBUTION WIDTH 13.4 % (9.6-15.2)
[2019-09-03] MEDS ORDERED: ONDANSETRON 2MG/ML, 2ML ONE (11:15)
[2019-09-03] MEDS ORDERED: MORPHINE SULFATE 4 MG/ML, 1ML ONE ×2 (11:15→12:04)
[2019-09-03] MEDS ORDERED: FAMOTIDINE 20 MG/2 ML ONE (11:15)
[2019-09-03] MEDS: MORPHINE SULFATE 4 MG/ML, 1ML IVPush PRN ×2 (11:18→12:11)
[2019-09-03 11:21] LABS: ALANINE AMINOTRANSFERASE 18 U/L (12-78); ALBUMIN 3.3 g/dL (3.4-5.0); CALCIUM 8.6 mg/dL (8.5-10.1); CHLORIDE 109 mmol/L (98-107); CREATININE 0.89 mg/dL (0.55-1.02)
[2019-09-03 11:23] LABS: ALKALINE PHOSPHATASE 75 U/L (45-117); BILIRUBIN,TOTAL 0.4 mg/dL (0.2-1.0); TOTAL PROTEIN 6.7 g/dL (6.4-8.2)
[2019-09-03 11:28] LABS: MICROSCOPIC AUTO
[2019-09-03 11:32] LABS: CULTURE INDICATED? YES
[2019-09-03 11:34] LABS: ANION GAP 4 mmol/L (5-15)
--- NOTE | 2019-09-03 12:12 | NUR ---
PT REPORTS ABD PAIN LEVEL DOWN FROM 9 TO 8, REQ SECOND DOSE MORPHINE. SUPERVISOR SPEECH PER EMAR, PT TOLERATED WELL. BP AND SPO2 MONITORS IN PLACE. PT A&O, RSPS EVEN AND UNLABORED. ALL RESULTS BACK, CHART UP FOR RECHECK. AWAITING MD AND DISPO.
--- NOTE | 2019-09-03 12:16 | NUR ---
report to break ARTHUR Rueda.
--- NOTE | 2019-09-03 13:05 | NUR ---
report received from satnam Rueda.
[2019-09-03 13:14] VITALS: BP 92/56
--- NOTE | 2019-09-03 13:15 | NUR ---
PT GIVEN DC INSTRUCTIONS. PIV DC'D WITH TIP INTACT. PT STATES PAIN IMPROVED S/P MORPHINE. PT HAS NOT PROVIDED STOOL SAMPLE WHILE IN ED. PT EDUCATED NOT TO DRIVE TODAY D/T MEDS GIVEN. PT A&O, RESPS EVEN AND UNLABORED, NADN. PT AMB TO DC DESK WITH STEADY GAIT ACCOMPANIED BY FAMILY.
== END 2019-09-03 13:16 | disposition home or self-care (01) ==
LOC: ED 12:16
DX: G89.29 Other chronic pain (principal); K86.1 Other chronic pancreatitis; K21.9 Gastro-esophageal reflux disease without esophagitis; E78.5 Hyperlipidemia, unspecified; Z87.19 Personal history of other diseases of the digestive system
CPT/HCPCS: 36415; 80053; 81001; 83690; 85025; 87086; 96361; 96374; 96375; 96376; 99285; J2270; J2405; J3490; J7030